=== PATIENT | male | born 1995 | race Caucasian/White ===

== ENCOUNTER 2020-03-03 21:10 | Emergency (ER) | payer OTHER ==
[2020-03-03] MEDS ORDERED: DIPHTH,PERTUSS(ACELL),TET 0.5 ML DISP.SYRIN IM ONE ×2 (21:41→21:49)
[2020-03-03 21:59] VITALS: BP 145/90; PULSE 88; TEMP 98.1; BMI 26.5
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
== END 2020-03-03 22:25 | disposition home or self-care (01) ==
LOC: FER 21:10
PROC: 3E0234Z Introduction of Serum, Toxoid and Vaccine into Muscle, Percutaneous Approach (ICD-10-PCS; principal; 2020-03-03)
DX: S60.511A Abrasion of right hand, initial encounter (principal); Z77.21 Contact with and (suspected) exposure to potentially hazardous body fluids
CPT/HCPCS: 90471; 90715; 99283-25

== ENCOUNTER 2020-03-27 23:40 | Emergency (ER) | payer OTHER ==
[2020-03-27 23:56] VITALS: BP 142/83; PULSE 102; TEMP 98.9; BMI 26.5
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
== END 2020-03-28 00:42 | disposition home or self-care (01) ==
LOC: FER 23:40
DX: S50.01XA Contusion of right elbow, initial encounter (principal); S50.311A Abrasion of right elbow, initial encounter; S61.217A Laceration without foreign body of left little finger without damage to nail, initial encounter
CPT/HCPCS: 73070-TC-RT-FY; 99283-25

== ENCOUNTER 2020-07-30 23:29 | Emergency (ER) | payer OTHER ==
[2020-07-30] MEDS ORDERED: IBUPROFEN 600 MG TABLET (FP) PO ONE ×2 (23:39→23:56)
[2020-07-31 00:06] VITALS: BP 124/72; PULSE 76; TEMP 98.4; BMI 29.9
== END 2020-07-31 00:18 | disposition home or self-care (01) ==
LOC: FER 23:29
DX: S93.602A Unspecified sprain of left foot, initial encounter (principal); X50.9XXA Other and unspecified overexertion or strenuous movements or postures, initial encounter
CPT/HCPCS: 73630-TC-LT; 99283-25

== ENCOUNTER 2021-01-09 00:54 | Emergency (ER) | payer OTHER ==
[2021-01-09 01:03] VITALS: BP 129/82; PULSE 63; TEMP 98.8; BMI 26.5
== END 2021-01-09 01:22 | disposition home or self-care (01) ==
LOC: FER 00:54
DX: S61.211A Laceration without foreign body of left index finger without damage to nail, initial encounter (principal); S50.812A Abrasion of left forearm, initial encounter
CPT/HCPCS: 99283-25

== ENCOUNTER 2021-06-28 20:16 | Emergency (ER) | payer OTHER ==
[2021-06-28 20:26] VITALS: BP 115/77; PULSE 69; TEMP 98.6; BMI 26.5
== END 2021-06-28 21:40 | disposition home or self-care (01) ==
LOC: FER 20:16
DX: S66.912A Strain of unspecified muscle, fascia and tendon at wrist and hand level, left hand, initial encounter (principal); S60.512A Abrasion of left hand, initial encounter; Y35.811A Legal intervention involving manhandling, law enforcement official injured, initial encounter
CPT/HCPCS: 99281-25

== ENCOUNTER 2022-05-22 19:15 | Emergency (ER) | payer OTHER ==
[2022-05-22 19:27] VITALS: BP 110/76; PULSE 67; RESP 16; TEMP 98.9; BMI 26.6
== END 2022-05-22 19:52 | disposition home or self-care (01) ==
LOC: FER 19:15
DX: S63.651A Sprain of metacarpophalangeal joint of left index finger, initial encounter (principal)
CPT/HCPCS: 99283-25

== ENCOUNTER 2022-05-23 22:18 | Emergency (ER) | payer OTHER ==
[2022-05-23 22:25] VITALS: BP 120/66; PULSE 57; RESP 16; TEMP 98.4; BMI 26.6
[2022-05-23] MEDS ORDERED: CEPHALEXIN MONOHYDRATE 500 MG CAPSULE (UD) PO ONE (23:24)
[2022-05-23] MEDS ORDERED: CEPHALEXIN MONOHYDRATE 500 MG CAPSULE (UD) ONE (23:26)
== END 2022-05-23 23:35 | disposition home or self-care (01) ==
LOC: FER 22:18
DX: S61.412A Laceration without foreign body of left hand, initial encounter (principal); W26.8XXA Contact with other sharp object(s), not elsewhere classified, initial encounter
CPT/HCPCS: 99283-25

== ENCOUNTER 2022-10-16 21:36 | Emergency (ER) | payer OTHER ==
[2022-10-16 22:05] VITALS: BP 127/69; PULSE 73; RESP 16; TEMP 98.9; BMI 26.4
== END 2022-10-16 22:45 | disposition home or self-care (01) ==
LOC: FER 21:36
DX: S63.621A Sprain of interphalangeal joint of right thumb, initial encounter (principal); Y99.8 Other external cause status
CPT/HCPCS: 73140-TC-RT-FY; 99283-25

== ENCOUNTER 2023-05-26 18:08 | Emergency (ER) | payer OTHER ==
[2023-05-26 18:21] VITALS: BP 110/69; PULSE 85; RESP 16; TEMP 98.2; BMI 27.3
== END 2023-05-26 19:55 | disposition home or self-care (01) ==
LOC: JERFT 18:08 → JER 18:08 → JERFT 19:55
DX: M25.572 Pain in left ankle and joints of left foot (principal); X50.1XXA Overexertion from prolonged static or awkward postures, initial encounter
CPT/HCPCS: 73610-TC-LT-FY; 99283-25

== ENCOUNTER 2023-06-16 00:36 | Emergency (ER) | payer OTHER ==
[2023-06-16 00:42] VITALS: BP 134/74; PULSE 76; RESP 18; TEMP 98; BMI 27.3
== END 2023-06-16 00:54 | disposition home or self-care (01) ==
LOC: FER 00:36
DX: S76.312A Strain of muscle, fascia and tendon of the posterior muscle group at thigh level, left thigh, initial encounter (principal); M79.652 Pain in left thigh; X50.9XXA Other and unspecified overexertion or strenuous movements or postures, initial encounter; Y93.02 Activity, running
CPT/HCPCS: 99282-25

== ENCOUNTER 2023-07-15 18:42 | Emergency (ER) | payer OTHER ==
[2023-07-15 19:02] VITALS: BP 129/29; PULSE 79; RESP 20; TEMP 98.2
[2023-07-15 19:13] VITALS: BMI 27.3
[2023-07-15] MEDS ORDERED: IBUPROFEN 600 MG TABLET (FP) PO ONE (19:54)
== END 2023-07-15 19:47 | disposition home or self-care (01) ==
LOC: FER 18:42
DX: S39.012A Strain of muscle, fascia and tendon of lower back, initial encounter (principal); M54.50 Low back pain, unspecified; X58.XXXA Exposure to other specified factors, initial encounter
CPT/HCPCS: 99283-25

== ENCOUNTER 2024-01-29 22:28 | Emergency (ER) | payer OTHER ==
[2024-01-29 22:36] VITALS: BP 135/70; PULSE 68; RESP 16; TEMP 97.8; BMI 27.3
== END 2024-01-29 23:13 | disposition home or self-care (01) ==
LOC: FER 22:28
DX: S60.410A Abrasion of right index finger, initial encounter (principal); W20.8XXA Other cause of strike by thrown, projected or falling object, initial encounter
CPT/HCPCS: 99282-25

== ENCOUNTER 2024-06-16 23:16 | Emergency (ER) | payer OTHER ==
[2024-06-16 23:30] VITALS: BP 148/80; PULSE 104; RESP 18; TEMP 97.8; BMI 26.6
[2024-06-16] MEDS ORDERED: BACITRACIN ZINC 15 GM TUBE TOPICAL OINTMENT ONE (23:53)
[2024-06-16] MEDS: BACITRACIN 0.9 GM PACKET TP ONE (23:59)
[2024-06-17] MEDS ORDERED: BACITRACIN/POLYMYXIN B SULFATE 15 GM TUBE TP ONE (23:50)
== END 2024-06-17 00:25 | disposition home or self-care (01) ==
LOC: JER 23:16
DX: S80.811A Abrasion, right lower leg, initial encounter (principal); S00.81XA Abrasion of other part of head, initial encounter; Y04.8XXA Assault by other bodily force, initial encounter
CPT/HCPCS: 99283-25

== ENCOUNTER 2025-02-06 19:10 | Emergency (ER) | payer OTHER ==
[2025-02-06 19:16] VITALS: BP 150/89; PULSE 92; RESP 16; TEMP 98.2; BMI 26.6
== END 2025-02-06 19:35 | disposition home or self-care (01) ==
LOC: FER 19:10
DX: S80.211A Abrasion, right knee, initial encounter (principal); S80.212A Abrasion, left knee, initial encounter; S60.812A Abrasion of left wrist, initial encounter; Y35.891A Legal intervention involving other specified means, law enforcement official injured, initial encounter
CPT/HCPCS: 99283-25